=== PATIENT | male | born 1950 | race Caucasian/White ===

== ENCOUNTER 2017-08-17 06:42 | Observation (INO) | payer OTHER ==
[~2017-08-17] VITALS: Ht 175.3 cm; Wt 74.0 kg
[~2017-08-17 06:42] MED LIST: AMLO2.5T PO; ATEN25TA PO; CARB25TA9 PO; CARD1TAB PO; FINA5TAB2 PO; PRAM0.12 PO; TIMO0.5S30 EACH EYE
[2017-08-17] MEDS ORDERED: LACTATED RINGER'S 1000 ML IV PRN (07:15)
[2017-08-17] MEDS ORDERED: VANCOMYCIN 1 GM/200 ML PREMIX ON-CALL IV SCH (07:15)
[2017-08-17] MEDS ORDERED: SODIUM CHLORID 0.9% 500 ML IV PRN (07:15)
[2017-08-17] MEDS ORDERED: METOPROLOL TARTRATE 25 MG TAB PO PRN (07:15)
[2017-08-17] MEDS ORDERED: POVIDONE IODINE 5% (ANTISEPSIS KIT) 4 APPLICATIONS EACH NARE PRN (07:15)
[2017-08-17] MEDS ORDERED: CHLORHEXIDINE GLUCONATE 2 % 1 PACK (2 CLOTHS) TOPICAL PRN (07:15)
[2017-08-17] MEDS ORDERED: MICROFIBRILLAR COLLAGEN HEMOSTAT 70 X 35 MM BANDAGE ONE (07:55)
[2017-08-17] MEDS ORDERED: THROMBIN (TOPICAL) 5,000 UNIT VIAL ONE (07:55)
[2017-08-17] MEDS ORDERED: ceFAZolin 2 GM PREMIX 50 ML ONE (07:55)
[2017-08-17] MEDS ORDERED: GELFOAM SIZE 100 ONE (07:56)
[2017-08-17] MEDS ORDERED: GENTAMICIN SULFATE 80 MG/2 ML VIAL ONE (07:56)
[2017-08-17] MEDS ORDERED: ARTIFICIAL TEARS OPTH OINT 3.5 APPLIC/3.5 GM TUBO ONE (09:14)
[2017-08-17] MEDS ORDERED: PROPOFOL 500 MG/50 ML INJ 100 ML ONE (09:22)
[2017-08-17] MEDS: SODIUM CHLOR 0.9% 1000 ML INJ 1,000 ML IV SCH ×2 (11:51→21:55)
--- NOTE | 2017-08-17 11:58 | PD.OP ---
Operative Report Date of Surgery: Aug 17, 2017 Preoperative Diagnosis: Cervical spinal stenosis Postoperative Diagnosis: Cervical spinal stenosis Procedure: C4-5, C5-6 anterior cervical discectomy, interbody arthodhesis using PEEK cage filled with autologous bone graft, Simplicity plate and screws. Anesthesia: general Surgeon: Derrek Escoto Merchandise Collector(s): Frannie Cooley Operation and Findings: INDICATIONS FOR THE PROCEDURE Mr Gamble is a 66 year-old male who presented with intractable neck pain and clinical evidence of C5 and C6 upper extremity radiculopathy. He was found to have significant spondylosis with stenosis. He has failed maximum nonsurgical management including multiple modalities of conservative treatment as well as pain management interventions by an interventional pain specialist. A surgical decompression and arthrodhesis were indicated. The [id number] details of the procedure, indications, alternatives, risks and potential complications were fully discussed with the patient. The patient fully understood. All The questions were answered. No guarantees were given. The patient voiced requesting the procedure and provided informed consents. The patient was offered the alternative of delaying the procedure and continuing with nonsurgical management. DETAILS OF THE SURGICAL PROCEDURE After the induction of general anesthesia, endotracheal intubation was performed. A Mott catheter, bilateral JASPAL hose, and sequential compression devices were placed and kept throughout the procedure. Placement of electrodes for neurophysiological monitoring of the somatosensorial evoked potentials. motor evoked potentials, and EMG as well as laryngeal nerve monitoring was achieved. The patient was positioned supine on a Nawaf table with the head over a gel doughnut. All pressure points were carefully padded with eggcrate mattress. The eyes were tapped shut after ointment was applied by the anesthesiologist to prevent corneal abrasion. A Zeke hugger was placed over the exposed lower body to maintain control of the core body temperature. The electrophysiological team placed the needles and electrodes in their proper location and baseline SSEP's and motor evoked potentials were registered prior and after positioning and endotracheal intubation. The anterior cervical region was prepped and draped in the usual sterile fashion. A localizing x-ray was performed with a C-arm. The surgical procedure was performed in several steps as follow: SURGICAL APPROACH A skin incision was made along the medial cervical crease with a #10 blade. The dissection was carried out through the platysma exposing the sternocleidomastoid muscle. The cervical spine was approached following the fascial layers of the neck just medial to the anterior border of the sternocleidomastoid and carotid sheath by a combination of sharp and dull dissection. The omohyoid muscle was identified and carefully dissected laterally and the deep cervical fascia was carefully opened. The longus colli muscles were retracted to each side of the midline. A marker was placed at the disc space C5-6 and a cross-table lateral x-ray performed with a C-arm. SURGICAL DECOMPRESSION In order to decompress the anterior surface of the spinal cord it was necessary to preform a microsurgical resection of the disk at C4-5 and C5-6. At this point in the procedure the operating microscope was draped in the usual sterile fashion and brought to the field. The rest of the surgical procedure was performed using microdissection technique with the exception of the closure. Under the operative microscopic, a self-retaining retractor was placed underneath the longus colli muscle. Anterior osteophite spurs werte carefully removed with the [place]. The annulus at C4-5 and C5-6 were incised with a #15 blade and microdiscectomy was then carefully carried out using angled curets and pituitary forceps. There were osteophitic/disk complexes mass effect and compression of the dural sac and nerve roots. The posterior longitudinal ligament was then elevated with an angled curet and incised with a 15 bladed knife. A careful resection of the posterior longitudinal ligament was carried out using a thin footplate 2 mm Kerrison. A nerve hook was used to assess the epidural space behing the vertebral bodies C5 and C6 in search for residual disk fragments. The margins of the posterior endplates at C4-5 and C5-6 were carefully drilled and undercut with a TPS drill under high magnification. The decompression was then carried out laterally, and a bilateral foraminotomy was performed with a 2mm thin foot Kerrison. Then the vertebral bodies above and below the disk space were undercut using a 2 mm thin foot Kerrison. The epidural space was the systematically assessed with a nerve hook in search for disk fragments or scar tissue. An excellent decompression was achieved in both , the dural sac and bilateral exiting nerve roots. The incision was then irrigated with a large amount of antibiotic solution INTERBODY ARTHRODHESIS In order to avoid collapse of the disk space which would result in bilateral foraminal stenosis, and to increase the chances of a successful fusion, it was necessary to place an interbody cage filled with autologous bone. At this point of the procedure, the superior and inferior endplates were then evenly decorticated with a TPS drill. The use of a drill in combination with a curette allowed me to systematically remove the cartilaginous endplates, exposing healthy bone for the interbody arthrodesis. Fourteen millimeters distraction pins were then placed at the vertebral bodies adjacent to the disk space, and gentle distraction was applied. The size of the interbody cage was then assessed using different size spacers, and a rasp was used to ensure no residual cartilage. A PEEK cage of the appropriate size was selected, and the interbody arthrodesis was then preformed by carefully impacting a PEEK cage filled with autologous bone graft to the disc spaces C4-5 and C5-6. An excellent position of the cage was achieved. This was was confirmed anatomically by feeling the space posterior to the implant and distance to the anterior surface of the dural sac. Radiological confirmation of the position was performed with a cross lateral xray performed with the C-arm. INTERNAL INSTRUMENTAL FIXATION Once that the interbody device was in an appropriate position, it was necessary to stabilize the spine with anterior instrumentation. Anterior instrumentation has demonstrated to increase the rate of fusion, acelerate the patient's recovery, and decrease the rate of failed interbody grafts. At this point of the procedure, the distance between the vertebral bodies was carefully measures, and a Simplicity plate was brought to the field and presented in front of the vertebral bodies C4 C5 and C6. Backfiller holes were then drilled using the TPS drill, and the plate was then secured to the spine using self-drilling, self-tapping screws. Initially, the inferior right screw was inserted, followed by placement of the contralateral upper screw. The remanding screws were sequentially placed in a contra-lateral fashion. A proper purchase was achieved with all screws and the position of the cage, plate and screws, and alignment of the spine was assessed anatomically by direct visualization, and radiologically by performing a cross lateral xray of the cervical spine with the C-arm. CLOSURE The incision was irrigated with several liters of antibiotic solution. Hemostasis was achieved with a bipolar. The screws were locked to prevent backing out. A 7 mm Nawaf-Solo drain was left in the prevertebral space and externalized through a separate stab incision. The incision was then closed in layers. 3-0 Vicryl with interrupted sutures was used to close the platysma and subcutaneous tissue. The skin was closed with 4-0 running subcuticular Vicryl and glue was applied to the skin. The drain was secured with a 3-0 nylon. At the end of the procedure the sponge, needle and instrument counts were all correct. The estimated blood loss was less than 100 cc. No blood transfusion was given. No intraoperative complications occurred. The patient received prophylactic antibiotics. The patient was then extubated and transferred to the recovery room in stable condition. Derrek Escoto MD Aug 17, 2017 11:58
[2017-08-17] MEDS ORDERED: CYCLOBENZAPRINE HCL 10 MG TAB PO PRN (12:00)
[2017-08-17] MEDS ORDERED: ROCURONIUM INJ 50 MG/5 ML SYRINGE IV PUSH ONE (12:00)
[2017-08-17] MEDS ORDERED: DEXAMETHASONE SOD PHOS 4 MG/ML VIAL IV ONE (12:00)
[2017-08-17] MEDS ORDERED: cloNIDine HCL 0.1 MG TAB PO/NG PRN (12:00)
[2017-08-17] MEDS ORDERED: ESMOLOL HCL 100 MG/10 ML VIAL IV ONE (12:00)
[2017-08-17] MEDS ORDERED: amLODIPine BESYLATE 5 MG TAB PO PRN (12:00)
[2017-08-17] MEDS ORDERED: ONDANSETRON HCL 4 MG/2 ML VIAL IV PRN (12:00)
[2017-08-17] MEDS ORDERED: ACETAMINOPHEN/HYDROcodone 325 MG/10 MG TAB PO PRN ×2 (12:00)
[2017-08-17] MEDS: DEXAMETHASONE SOD PHOS 4 MG/ML VIAL IV PUSH SCH ×2 (12:00→18:00)
[2017-08-17] MEDS ORDERED: PROPOFOL 200 MG/20 ML AMP IV ONE (12:00)
[2017-08-17] MEDS ORDERED: DEXTROSE 50% IN WATER 50 ML VIAL(D50) IV PUSH PRN (12:00)
[2017-08-17] MEDS ORDERED: ONDANSETRON HCL 4 MG/2 ML VIAL IV ONE (12:00)
[2017-08-17] MEDS ORDERED: LIDOCAINE HCL 1% PF 5 ML SYRINGE OTHER ONE (12:00)
[2017-08-17] MEDS ORDERED: GLUCAGON 1 MG/ML VIAL OTHER PRN (12:00)
[2017-08-17] MEDS ORDERED: MAGNESIUM HYDROXIDE SUSP 30 ML CUP PO PRN (12:00)
[2017-08-17] MEDS ORDERED: RESP: ALBUTEROL 2.5 MG/3 ML NEB (PRN) INH (12:00)
[2017-08-17] MEDS: PANTOPRAZOLE SOD 40 MG DELAYED RELEASE TAB PO SCH (12:00)
[2017-08-17] MEDS ORDERED: ATENOLOL 25 MG TAB PO PRN (12:00)
[2017-08-17] MEDS ORDERED: MORPHINE SULFATE 4 MG/ML INJ IV PUSH PRN ×2 (12:00)
[2017-08-17] MEDS ORDERED: ePHEDrine/NS 25 MG/5 ML SYRINGE IV ONE (12:00)
[2017-08-17] MEDS ORDERED: BISACODYL 10 MG SUPP RECTAL PRN (12:00)
[2017-08-17] MEDS ORDERED: MENTHOL LOZENGE BUCCAL PRN (12:00)
[2017-08-17] MEDS: TIMOLOL MALEATE 0.5% OPHT SOLN 5 ML BTL EACH EYE SCH ×2 (12:00→21:55)
[2017-08-17] MEDS ORDERED: SODIUM CHLORID 0.9% 500 ML INJ 500 ML IV ONE (12:00)
[2017-08-17] MEDS ORDERED: PHENYLEPH/NS 1000 MCG/10 ML SYR IV ONE (12:00)
[2017-08-17] MEDS ORDERED: ACETAMINOPHEN 325 MG TAB PO PRN (12:00)
[2017-08-17] MEDS ORDERED: LACTATED RINGER'S 1000 ML INJ 1,000 ML IV ONE (12:00)
[2017-08-17] MEDS ORDERED: hydrALAZINE HCL 20 MG/ML VIAL IV ONE (12:00)
[2017-08-17] MEDS: DOCUSATE SODIUM 100 MG CAP PO SCH ×2 (12:00→21:00)
[2017-08-17] MEDS ORDERED: DO NOT ADM ANY ANTICOAGULANT DRUGS PRN (12:20)
[2017-08-17] MEDS ORDERED: *morphine SULFATE 10 MG/ML PERIprocedure ONLY ONE (12:55)
[2017-08-17] MEDS: PRAMIPEXOLE DIHYDROCHLORIDE 0.25 MG TAB PO SCH ×2 (13:00→18:00)
[2017-08-17] MEDS ORDERED: MIDAZOLAM HCL 2 MG/2 ML VIAL ONE (13:05)
[2017-08-17] MEDS: CARBIDOPA/LEVODOPA 25 MG/100 MG TAB PO SCH ×2 (14:00→21:45)
[2017-08-17] MEDS ORDERED: PILL SPLITTER OTHER PRN (15:30)
[2017-08-17] MEDS: ceFAZolin 2 GM PREMIX 50 ML IV SCH (17:00)
--- NOTE | 2017-08-17 20:00 | RADRPT ---
EXAM DATE/TIME: 08/17/2017 09:36 [facility] COMPARISON: No previous studies available for comparison. INDICATIONS : C4-6 Anterior cervical disc fusion. MEDICAL HISTORY : Hypertension. Carcinoma, bladder. Arthritis. Parkinson's. smoker. SURGICAL HISTORY : None. ENCOUNTER: Initial ACUITY: 1 day PAIN SCORE: Non-responsive. LOCATION: Cervical spine. FINDINGS: Patient is status post intracervical fusion at C4-5 and C5-6. There is good position of the cervical spine and fusion. The hardware is grossly intact. Postsurgical changes are demonstrated. CONCLUSION: Good position and alignment on this postoperative study. Jac Judge MD on August 17, 2017 at 19:57 Board Certified Radiologist. This report was verified electronically.
[2017-08-17] MEDS ORDERED: CHLORHEXIDINE GLUCONATE 4% SOLN 120 ML BTL TOP SCH (21:00)
[2017-08-17 21:15] VITALS: BP 90/56; PULSE 75; RESP 18; TEMP 97.4; O2SAT 95
[2017-08-18 00:50] VITALS: BP 104/64; PULSE 82; RESP 17; TEMP 98.4; O2SAT 94
[2017-08-18] MEDS: SODIUM CHLOR 0.9% 1000 ML INJ 1,000 ML IV SCH (01:40)
[2017-08-18] MEDS: DEXAMETHASONE SOD PHOS 4 MG/ML VIAL IV PUSH SCH ×3 (01:41→13:38)
[2017-08-18] MEDS: ceFAZolin 2 GM PREMIX 50 ML IV SCH ×2 (01:41→09:08)
[2017-08-18 05:40] VITALS: BP 105/65; PULSE 72; RESP 17; TEMP 97.9; O2SAT 95
[2017-08-18] MEDS: CARBIDOPA/LEVODOPA 25 MG/100 MG TAB PO SCH ×2 (05:54→13:38)
[2017-08-18 07:35] VITALS: O2SAT 95
[2017-08-18 08:00] VITALS: BP 162/82; PULSE 73; RESP 18; TEMP 98.6; O2SAT 95
[2017-08-18] MEDS ORDERED: FINASTERIDE 5 MG TAB PO SCH (09:00)
[2017-08-18] MEDS ORDERED: DOXAZOSIN MESYLATE 1 MG TAB PO SCH (09:00)
[2017-08-18] MEDS ORDERED: PANTOPRAZOLE SODIUM 40 MG VIAL IVP SCH (09:00)
[2017-08-18] MEDS: TIMOLOL MALEATE 0.5% OPHT SOLN 5 ML BTL EACH EYE SCH (09:08)
[2017-08-18] MEDS: DOCUSATE SODIUM 100 MG CAP PO SCH (09:10)
[2017-08-18] MEDS: PANTOPRAZOLE SOD 40 MG DELAYED RELEASE TAB PO SCH (09:10)
[2017-08-18] MEDS: PRAMIPEXOLE DIHYDROCHLORIDE 0.25 MG TAB PO SCH ×2 (09:11→13:38)
[2017-08-18] MEDS ORDERED: TRAM50TA PO (09:26)
--- NOTE | 2017-08-18 11:49 | HHI.DCPOC ---
Discharge Care Plan Diagnosis: (1) Status post cervical arthrodesis Goals to Promote Your Health * To prevent worsening of your condition and complications * To maintain your health at the optimal level Directions to Meet Your Goals Take your medications as prescribed Follow your dietary instruction Follow activity as directed Keep your appointments as scheduled Take your immunizations and boosters as scheduled If your symptoms worsen call your PCP, if no PCP go to Urgent Care Center or Emergency Room Smoking is Dangerous to Your Health. Avoid second hand smoke Call the 24-hour hour crisis hotline for domestic abuse at Jessica Bernal Aug 18, 2017 11:49
--- NOTE | 2017-08-18 11:50 | HHI.FF ---
Face to Face Verification Diagnosis: (1) Status post cervical arthrodesis Physical Therapy Order: Improve ambulation Home Health Nursing Order: Medical education Signs/symptoms of disease process Medication education-adverse effect Wound care and dressing changes (please see d/c orders for wound care) Nursing assessment with vital signs I have seen patient Taj Gamble on 08/18/17. My clinical findings support the need for the requested home health care services because: Ltd mobility - disease progression Deconditioned w/ increased weakness High risk of falls I certify that my clinical findings support that this patient is homebound because: Post-op weakness Unsteady gait/balance Jessica Bernal Aug 18, 2017 11:50
--- NOTE | 2017-08-18 11:54 | HHI.DS ---
Discharge Summary Admission Date Aug 17, 2017 at 11:54 Discharge Date: Aug 18, 2017 Admitting Diagnosis s/p ACDF (1) Status post cervical arthrodesis ICD Code: Z98.1 - Arthrodesis status Brief History Mr Gamble is a 66 year-old male who presented with intractable neck pain and clinical evidence of C5 and C6 upper extremity radiculopathy. He was found to have significant spondylosis with stenosis. He has failed maximum nonsurgical management including multiple modalities of conservative treatment as well as pain management interventions by an interventional pain specialist. A surgical decompression and arthrodhesis were indicated. Significant Findings Laboratory Tests Test 08/17/17 07:20 Imaging Last Impressions Cervical Spine X-Ray 08/17/17 0000 Signed Impressions: Service Date/Time: Thursday, August 17, 2017 09:36 - CONCLUSION: Good position and alignment on this postoperative study. Jac Judge MD PE at Discharge Mr. Gamble is alert, in no apparent distress. Speech is fluent. Cranial nerve examination: pupils equal, round and reactive to light. Extra- ocular movements are intact. Facial motor are normal and symmetrical. Neck is immobilized by a [place] J collar. Musculoskeletal: moves all four extremities Respiratory: clear, no wheezing Skin: no cyanosis. Surgical wound with Optifoam dressing in place. Hospital Course Mr. Gamble underwent a C4-5, C5-6 anterior cervical discectomy, interbody arthodhesis using PEEK cage filled with autologous bone graft, Simplicity plate and screws on Aug 17, 2017 for Cervical spinal stenosis. His surgery went well without complications. He was evaluated by PT recommending home health care with PT. His PATEL drain removed. He is discharged home in stable conditions. Pt Condition on Discharge: Stable Discharge Disposition: Disch w/ Home Health Serv Discharge Instructions DIET: Follow Instructions for: Soft Diet ADDITIONAL Diet Instructions: advance as tolerated ACTIVITIES You can perform: Weight Bearing As [place] ADDITIONAL Activity Instructio: Avoid strenuous activities, heavy lifting over 5 lbs, overhead activities, repetitive bending, twisting, pushing, pulling or any activities which might result in stress over the spine. Avoid situation that will put at risk for falls. Use assistive device as needed for walking. Wear cervical collar at all times, may remove only with meals. New Medications: Tramadol (Tramadol) 50 Mg Tab 50 MG PO Q8H PRN for PAIN, #30 TAB 0 Refills Continued Medications: Amlodipine (Amlodipine) 2.5 Mg Tab 2.5 MG PO DAILY PRN for INCREASE IN BLOOD PRESSURE, #30 TAB 0 Refills Atenolol (Atenolol) 25 Mg Tab 25 MG PO DAILY PRN for INCREASE IN BLOOD PRESSURE, #30 TAB Carbidopa-Levodopa (Carbidopa-Levodopa) 25-100 Mg Tab 1 TAB PO Q8HR for Parkinson Disease Mgmt, #90 TAB 0 Refills Doxazosin (Cardura) 1 Mg Tab 1 MG PO DAILY for bph, #90 TAB 4 Refills Pt to increase to 2 mg PO QHS after 1 week if no side effects. Finasteride (Finasteride) 5 Mg Tab 5 MG PO DAILY for Manage Prostate Problems, #30 TAB 0 Refills Do not crush. Pramipexole (Pramipexole) 0.125 Mg Tab 0.125 MG PO TID for Parkinson Disease Mgmt, #90 TAB 0 Refills Timolol Opth Drops (Timolol Opth Drops) 0.5 % Soln 1 DROP EACH EYE BID for Glaucoma, #1 BOTTLE 0 Refills Jessica Bernal Aug 18, 2017 11:54
[2017-08-18 12:00] VITALS: BP 121/70; PULSE 64; RESP 18; TEMP 97.9; O2SAT 95
[2017-08-18 20:45] VITALS: BP 127/64; PULSE 98; RESP 23; TEMP 100.3; O2SAT 91
== END 2017-08-18 14:59 | disposition home health service (06) ==
LOC: HSDC 06:42 → HSDI 11:54 → N05A 15:50
PROVIDERS: ADMIT Neurological Surgery; ATTEND Neurological Surgery
DX: M48.02 Spinal stenosis, cervical region (principal); M50.022 Cervical disc disorder at C5-C6 level with myelopathy; M54.12 Radiculopathy, cervical region; I10 Essential (primary) hypertension; R00.2 Palpitations; G20 Parkinson's disease; K21.9 Gastro-esophageal reflux disease without esophagitis
CPT/HCPCS: 00600; 20936; 22551; 22552; 22853; 72040; 76000; 87641; 94150; 96361; 96374; 96375; 96376; 97162; C1713; C9113; G0378; G8987; G8988; J0360; J0690; J1100; J1580; J2250; J2270; J2370; J2405; J3010; J3370; J7030; J7040; J7120; L0150; L0172